=== PATIENT | female | born 1975 | race Caucasian/White ===

== ENCOUNTER 2018-08-26 02:25 | Emergency (ER) | payer OTHER ==
[2018-08-26] MEDS ORDERED: Tetracaine HCl/PF 0.5% 4 ML Bottle EYEBOTH ONE (03:03)
--- NOTE | 2018-08-26 03:04 | EDM.PDOC ---
ED HPI GENERAL MEDICAL PROBLEM - General Chief Complaint: Eye Problems Stated Complaint: EYE IRRITATION Time Seen by Provider: 08/26/18 03:03 Source of Information: Reports: Patient - History of Present Illness INITIAL COMMENTS - FREE TEXT/NARRATIVE: HISTORY AND PHYSICAL: History of present illness: [Patient presents after drinking alcohol, she is unable to locate contact lens on her left eye she feels may have went up behind her eyelid as it feels as if there is foreign-body sensation She did not have any trauma to the eye she states she was sitting there playing with her dog and her vision became blurry however she feels that the contact lenses still in Readily appreciate the contact lens on the right, however I was not able to find the contact lens on the left her had flushed her eye as it was uncomfortable, as may have washed out I did new the lid and did for example for using exam there is a couple of minor corneal abrasions however I do not find the contact lens Her nausea vomiting chills sweats] Review of systems: As per history of present illness and below otherwise all systems reviewed and negative. Past medical history: As per history of present illness and as reviewed below otherwise noncontributory. Surgical history: As per history of present illness and as reviewed below otherwise noncontributory. Social history: No reported history of drug or alcohol abuse. Family history: As per history of present illness and as reviewed below otherwise noncontributory. Physical exam: HEENT: Atraumatic, normocephalic, pupils reactive, negative for conjunctival pallor or scleral icterus, mucous membranes moist, throat clear, neck supple, nontender, trachea midline. Lungs: Clear to auscultation, breath sounds equal bilaterally, chest nontender. Heart: S1S2, regular, negative for clicks, rubs, or JVD. Abdomen: Soft, nondistended, nontender. Negative for masses or hepatosplenomegaly. Negative for costovertebral tenderness. Pelvis: Stable nontender. Genitourinary: Deferred. Rectal: Deferred. Extremities: Atraumatic, negative for cords or calf pain. Neurovascular unremarkable. Neuro: Awake, alert, oriented. Cranial nerves II through XII unremarkable. Cerebellum unremarkable. Motor and sensory unremarkable throughout. Exam nonfocal. Diagnostics: []Wood's lamp and fluorescein Therapeutics: []Tetracaine Erythromycin ointment Impression: [Medical screening exam Contact lens appreciated on the left Inner corneal abrasions] Definitive disposition and diagnosis as appropriate pending reevaluation and review of above. Left Eye Pain Score (Numeric/FACES): 7 - Related Data Allergies Allergy/AdvReac Type Severity Reaction Status Date / Time amoxicillin Allergy Other Verified 08/26/18 02:46 sulfamethoxazole Allergy Rash Verified 08/26/18 02:46 [From Bactrim] trimethoprim [From Bactrim] Allergy Rash Verified 08/26/18 02:46 Home Meds: Home Meds Sertraline [Zoloft] 50 mg PO DAILY 08/26/18 [History] clonazePAM [Klonopin] 0.5 mg PO ASDIRECTED 08/26/18 [History] Past Medical History [employer] History: Reports: Psychiatric History: Reports: Anxiety, Depression - Infectious Disease History Infectious Disease History: Reports: Chicken Pox - Past Surgical History HEENT Surgical History: Reports: Oral Surgery Female Surgical History: Reports: Section Musculoskeletal Surgical History: Reports: Other (See Below) Other Musculoskeletal Surgeries/Procedures:: R wrist surgery Social & Family History - Tobacco Use Smoking Status *Q: Current Every Day Smoker Years of Tobacco use: 25 Packs/Tins Daily: 0.5 - Recreational Drug Use Recreational Drug Use: No ED ROS GENERAL - Review of Systems Review Of Systems: See Below ED EXAM GENERAL W FULL EYE - Physical Exam Exam: See Below Course - Vital Signs Last Recorded V/S: Last Vital Signs Temp 96.3 F 08/26/18 02:42 Pulse 81 08/26/18 02:42 Resp 18 08/26/18 02:42 BP 121/79 08/26/18 02:42 Pulse Ox 96 08/26/18 02:42 - Orders/Labs/Meds Meds: Medications Discontinued Medications Generic Name Dose Route Start Last Admin Trade Name Freq PRN Reason Stop Dose Admin Tetracaine HCl 1 ml 08/26/18 03:03 08/26/18 03:14 Tetracaine 0.5% Steri-Unit Vivienne EYEBOTH 08/26/18 03:04 1 dose ASDIRECTED ONE Administration Departure - Departure Time of Disposition: 03:20 Disposition: Home, Self-Care 01 Condition: Good Clinical Impression: Corneal abrasion - Discharge Information Referrals: Awais Wall MD [Primary Care Provider] - Forms: ED Department Discharge Additional Instructions: No contact lenses for 5 days Return if symptoms persist or worsen Follow-up with ophthalmology if symptoms persist or worsen [address] [address] The following information is given to patients seen in the emergency department who are being discharged to home. This information is to outline your options for follow-up care. We provide all patients seen in our emergency department with a follow-up referral. The need for follow-up, as well as the timing and circumstances, are variable depending upon the specifics of your emergency department visit. If you don't have a primary care physician on staff, we will provide you with a referral. We always advise you to contact your personal physician following an emergency department visit to inform them of the circumstance of the visit and for follow-up with them and/or the need for any referrals to a consulting specialist. The emergency department will also refer you to a specialist when appropriate. This referral assures that you have the opportunity for follow-up care with a specialist. All of these measure are taken in an effort to provide you with optimal care, which includes your follow-up. Under all circumstances we always encourage you to contact your private physician who remains a resource for coordinating your care. When calling for follow-up care, please make the office aware that this follow-up is from your recent emergency room visit. If for any reason you are refused follow-up, please contact the [facility] emergency department at and asked to speak to the emergency department charge nurse.
[2018-08-26] MEDS ORDERED: Erythromycin Base 0.5% Ophth Oint 1 GM Tube EYEBOTH ONE (03:21)
== END 2018-08-26 03:35 | disposition home or self-care (01) ==
LOC: MW.ED 02:25
DX: H18.822 Corneal disorder due to contact lens, left eye (principal); F17.210 Nicotine dependence, cigarettes, uncomplicated; Z88.1 Allergy status to other antibiotic agents; Z88.2 Allergy status to sulfonamides; Z79.899 Other long term (current) drug therapy
CPT/HCPCS: 99283; A9270